=== PATIENT | female | born 1955 | race Caucasian/White ===

== ENCOUNTER → 2017-12-05 | Outpatient (CLI) | payer OTHER ==
[2017-12-05 09:55] LABS: CREATININE 0.5 mg/dL (0.55-1.02)
--- NOTE | 2017-12-05 15:07 | RAD ---
Examination: Chest, PA and lateral views History: COPD Findings: Normal heart size, arteriosclerotic aorta. The lungs are moderately hyperaerated with low, flat diaphragm. No acute infiltrate, mass formation or pneumothorax is seen. The central pulmonary ar teries are borderline enlarged. Impression: Findings consistent with COPD. Mild or early pulmonary arterial hypertension may be prese nt. Reported By:
--- NOTE | 2017-12-06 10:08 | CT ---
Examination: CT of the chest with contrast. Clinical history: COPD, high blood pressure, difficulty breathing, shortness of breath for months. Technique: Multiple axial images were obtained from the lung apices down to the lung bases, following the intravenous administration of 100 mL of Omnipaque 350. Dose reduction techniques including autom ated exposure control (AEC) and adjustment of mA and kV were utilized. Comparison: None available. Findings: The heart is normal in size. The thoracic aorta is calcified, with mild associated atherosclerotic changes, but is normal in calib er. The remainder of the great vessels are within normal limits. No hilar or mediastinal mass is noted. No enlarged lymph nodes, by CT criteria, are noted in the medi astinum, dionisio or axilla bilaterally. No central obstructing bronchial lesion is noted. No pleural or pericardial effusion is noted. Mild emphysematous changes are noted, with an upper lung zone predominance. A 2 cm bulla is seen in t he left upper lobe. The lungs are otherwise clear, with no confluent opacity, pulmonary mass or nodul e noted. There is a 3.8 x 3.0 cm low-density mass associated with the left lobe of the liver seen at the dome of the liver, which has some peripheral calcifications or nodular enhancement, and measures approxima tely 26 Hounsfield units. An MRI of the abdomen, with intravenous contrast, is recommended for furthe r evaluation. The remainder of the visualized portion of the upper abdomen is unremarkable. Degenerative changes are noted in the spine. No acute osseous abnormality is noted. Impression: 1. Mild emphysematous changes are noted, with an upper lung zone predominance. A 2 cm bulla is seen i n the left upper lobe. The lungs are otherwise clear, with no confluent opacity, pulmonary mass or no dule noted. 2. There is a 3.8 x 3.0 cm low-density mass associated with the left lobe of the liver seen at the do me of the liver, which has some peripheral calcifications or nodular enhancement, and measures approx imately 26 Hounsfield units. An MRI of the abdomen, with intravenous contrast, is recommended for fur ther evaluation. Reported By:
== END ==
LOC: RAD 09:16
PROVIDERS: ATTEND Nurse Practitioner Family
DX: J44.9 Chronic obstructive pulmonary disease, unspecified (principal); R91.8 Other nonspecific abnormal finding of lung field
CPT/HCPCS: 36415; 71046; 71260; 82565; 84520; A4222

== ENCOUNTER → 2017-12-21 | Outpatient (CLI) | payer OTHER ==
[2017-12-21 08:55] LABS: CREATININE 0.53 mg/dL (0.55-1.02)
--- NOTE | 2017-12-21 11:24 | MRI ---
MRI OF THE ABDOMEN WITHOUT AND WITH IV CONTRAST Clinical indication: Liver lesion Procedure: Multiplanar multi sequence MRI of the abdomen were obtained with and without the administr ation of intravenous contrast according to standard departmental protocol. Contrast: 10 cc of Omniscan. Comparisons: CT 12/05/2017 Findings: MRI of the abdomen without contrast: No significant iron or fat deposition in the liver or spleen. No significant ascites. MRI of the abdomen with contrast: Liver and spleen are normal in appearance. Within the left lobe of liver is a mildly T2 bright mass measuring 4.0 x 2.7 cm on series 701, image 6 that demonstrates per ipheral nodular enhancement with some filling in on later phase images. Gallbladder is present. No ga llstones. No filling defects within the common bile duct. No ductal dilatation. Pancreas demonstrate s normal T1 signal. No pancreatic masses. Adrenal glands are normal. Kidneys demonstrate normal corti taylor medullary differentiation. No hydronephrosis. Visualized bowel is unremarkable. No suspicious lym ph nodes. Impression: 1. Lesion in the left lobe of liver likely representing a hemangioma which may be partially sclerosed . Reported By:
== END ==
LOC: RAD 08:22
PROVIDERS: ATTEND Nurse Practitioner Family
DX: R91.8 Other nonspecific abnormal finding of lung field (principal)
CPT/HCPCS: 36415; 74182; 82565; 84520